=== PATIENT | female | born 1990 | race Caucasian/White ===

== ENCOUNTER → 2020-12-28 | Outpatient (CLI) | payer BC ==
--- NOTE | 2020-12-28 14:30 | RAD ---
EXAM: Right breast sonogram. HISTORY: 30-year-old female presents with a right breast lump. TECHNIQUE: Sonographic imaging of the right breast targeted to the site of reported palpable concern was performed. COMPARISON: None. FINDINGS: There is no suspicious sonographic finding within the right breast at the site of palpable concern within the upper outer quadrant. There is no suspicious lesion within the right axilla. IMPRESSION: 1. No suspicious sonographic finding. Continued clinical follow-up of palpable abnormalities is recom mended. Negative imaging should not preclude the decision to biopsy a palpable abnormality if there i s continued concern. Diagnostic mammography can also be considered if there is continuing concern. 2. BI-RADS Category 2: Benign finding(s). Electronically signed by: Dayana Shahid MD (12/28/2020 2:27 PM) [id number]
== END ==
LOC: US 13:55
PROVIDERS: ATTEND Obstetrics & Gynecology
DX: N63.10 Unspecified lump in the right breast, unspecified quadrant (principal)
CPT/HCPCS: 76642